=== PATIENT | female | born 1995 ===

== ENCOUNTER 2018-10-19 21:48 | Inpatient (IN) | payer MEDICAID ==
[2018-10-20] MEDS ORDERED: Carboprost Tromethamine 250 MCG/1 ML Amp IM PRN (02:05)
[2018-10-20] MEDS ORDERED: Sodium Chloride 0.9% 10 ML SDV IV PRN (02:05)
[2018-10-20] MEDS ORDERED: Lidocaine 1% 50 ML MDV INJECT PRN (02:05)
[2018-10-20] MEDS ORDERED: Nalbuphine 10 MG/1 ML Vial IVPUSH PRN (02:05)
[2018-10-20] MEDS ORDERED: Tranexamic Acid 1,000 MG in Sodium Chloride 0.9% 100 ML IV PRN (02:05)
[2018-10-20] MEDS ORDERED: Sodium Chloride 0.9% 2.5 ML Syringe FLUSH PRN (02:05)
[2018-10-20] MEDS ORDERED: Sodium Chloride 0.9% 10 ML Syringe FLUSH PRN (02:05)
[2018-10-20] MEDS ORDERED: Misoprostol 200 MCG Tab PO PRN (02:05)
[2018-10-20] MEDS ORDERED: Methylergonovine 0.2 MG/1 ML Amp IM PRN (02:05)
[2018-10-20] MEDS ORDERED: Ondansetron 4 MG/2 ML SDV IV PRN (02:05)
[2018-10-20] MEDS ORDERED: Water For Irrigation,Sterile 1,000 ML Container IRR PRN (02:05)
[2018-10-20] MEDS ORDERED: Oxytocin/0.9 % Sodium Chloride 30 UNIT/500 ML BAG IV SCH (02:15)
[2018-10-20] MEDS ORDERED: Lactated Ringers 1,000 ML IV SCH (02:15)
[2018-10-20] MEDS: Butorphanol 1 MG/ML SDV IVPUSH PRN ×2 (02:46→04:20)
[2018-10-20] MEDS ORDERED: Acetaminophen 500 MG Tab PO PRN ×2 (05:49)
[2018-10-20] MEDS ORDERED: Ibuprofen 400 MG Tab PO PRN (05:49)
[2018-10-20] MEDS ORDERED: Witch Hazel Medicated Pads 40/Jar TOP PRN (05:49)
[2018-10-20] MEDS ORDERED: Benzocaine/Menthol 20%-0.5% Spray 78 GM Cannister TOP PRN (05:49)
[2018-10-20] MEDS ORDERED: Bisacodyl 10 MG Supp RECTAL PRN (05:49)
[2018-10-20] MEDS ORDERED: Lanolin 100% Cream 7 GM Tube TOP PRN (05:49)
[2018-10-20] MEDS ORDERED: oxyCODONE 5 MG Tab PO PRN (05:49)
[2018-10-20] MEDS ORDERED: Docusate Sodium 100 MG Cap PO PRN (05:49)
--- NOTE | 2018-10-20 05:53 | PCM.DEL ---
L & D Note - General Info Date of Service: 10/20/18 Mother's Due Date: 10/25/18 - Delivery Note Labor: Spontaneous Delivery Outcome: Livebirth Infant Delivery Method: Spontaneous Vaginal Delivery-Single Presentation: Vertex Nuchal Cord: None Anesthetic: Lidocaine (Xylocaine) 1% Plain Local Anesthetic Volume: 5cc Amniotic Fluid Description: Clear Episiotomy Type: None Laceration: 2nd Degree Suture type: Other (monocyrl) Suture size: 2-0 Placenta: Intact Cord: 3 Vessels Estimated Blood Loss: 350 Resuscitation Needed: No Score 1 min: 8 Score 5 min: 9 Delivery Comments (Free Text/Narrative):: Live female delivered at 450am 8/9 wt 3280g - General Info Date of Service: 10/20/18 - Patient Data Vitals - Most Recent: t Weight - Most Recent: 56.699 kg Lab Results Last 24 Hours: Laboratory Results - last 24 hr 10/20/18 10/20/18 Range/Units 02:20 02:20 WBC 13.70 H (4.0-11.0) K/uL RBC 3.50 L (4.30-5.90) M/uL Hgb 9.7 L (12.0-16.0) g/dL Hct 29.6 L (36.0-46.0) % MCV 84.6 (80.0-98.0) fL MCH 27.7 (27.0-32.0) pg MCHC 32.8 (31.0-37.0) g/dL RDW Std Deviation 43.1 (28.0-62.0) fl RDW Coeff of Archie 15 (11.0-15.0) % Plt Count 300 (150-400) K/uL MPV 12.20 H (7.40-12.00) fL Blood Type O POSITIVE Antibody Screen NEGATIVE Med Orders - Current: Current Medications Acetaminophen (Tylenol Extra Strength) 500 mg PO Q4H PRN PRN Reason: Pain Acetaminophen (Tylenol Extra Strength) 1,000 mg PO Q4H PRN PRN Reason: Pain Benzocaine/Menthol (Dermoplast Pain Relief 20%-0.5% [place]) 78 gm TOP ASDIRECTED PRN PRN Reason: Perineal Comfort Measure Bisacodyl (Dulcolax) 10 mg RECTAL ONETIME PRN PRN Reason: Constipation Carboprost Tromethamine (Hemabate Ds) 250 mcg IM ASDIRECTED PRN PRN Reason: Post Hemorrhage Docusate Sodium (Colace) 100 mg PO BID PRN PRN Reason: Constipation Emollient Ointment (Lansinoh Hpa) 0 gm TOP ASDIRECTED PRN PRN Reason: Sore Nipples Lactated Ringer's (Ringers, Lactated) 1,000 mls @ 150 mls/hr IV ASDIRECTED RYLEE Oxytocin/Sodium Chloride (Oxytocin 30 Unit/500 Ml-Ns) 30 unit in 500 mls @ 555 mls/hr IV TITRATE RYLEE Last Admin: 10/20/18 04:52 Dose: 555 mls/hr Tranexamic Acid 1,000 mg/ (Sodium Chloride) 110 mls @ 660 mls/hr IV ONETIME PRN PRN Reason: Bleeding Ibuprofen (Motrin) 400 mg PO Q4H PRN PRN Reason: Pain Ibuprofen (Motrin) 800 mg PO Q6H PRN PRN Reason: Pain Lidocaine HCl (Xylocaine 1%) 50 ml INJECT ONETIME PRN PRN Reason: Laceration repair Last Admin: 10/20/18 04:50 Dose: 50 ml Measles/Mumps/Rubella Vaccine Live (M-M-R Ii Vaccine) 0.5 ml SUBCUT .ONCE ONE Stop: 10/21/18 05:50 Methylergonovine Maleate (Methergine) 0.2 mg IM ASDIRECTED PRN PRN Reason: Post Hemorrhage Misoprostol (Cytotec) 200 mcg PO ONETIME PRN PRN Reason: Post Hemorrhage Ondansetron HCl (Zofran) 4 mg IV Q4H PRN PRN Reason: Nausea/Vomiting Oxycodone HCl (Oxycodone) 5 mg PO Q2H PRN PRN Reason: Pain Sodium Chloride (Saline Flush) 10 ml FLUSH ASDIRECTED PRN PRN Reason: Keep Vein Open Sodium Chloride (Saline Flush) 2.5 ml FLUSH ASDIRECTED PRN PRN Reason: Keep Vein Open Sodium Chloride (Normal Saline) 10 ml IV ASDIRECTED PRN PRN Reason: IV Use Sterile Water (Sterile Water For Irrigation) 1,000 ml IRR ASDIRECTED PRN PRN Reason: delivery Last Admin: 10/20/18 04:50 Dose: 1,000 ml [place] Tika (Tucks) 1 pad TOP ASDIRECTED PRN PRN Reason: comfort care Discontinued Medications Butorphanol Tartrate (Stadol) 1 mg IVPUSH Q1H PRN PRN Reason: Pain Last Admin: 10/20/18 04:20 Dose: 1 mg Nalbuphine HCl (Nubain) 10 mg IVPUSH Q1H PRN PRN Reason: Pain (severe 7-10) - Problem List & Annotations (1) Vaginal delivery SNOMED Code(s): 786447281 Code(s): O80 - ENCOUNTER FOR FULL-TERM UNCOMPLICATED DELIVERY Status: Acute Current Visit: Yes - Problem List Review Problem List Initiated/Reviewed/Updated: Yes - My Orders Last 24 Hours: My Active Orders 10/20/18 02:05 Patient Status [ADT] Routine Heart Tones [RC] CONTINUOUS Non Stress Test [RC] PER UNIT ROUTINE May Shower [RC] ASDIRECTED Notify Provider [RC] PRN Up ad Nidia [RC] ASDIRECTED Vaginal Exam [RC] PRN Vital Signs [RC] PER UNIT ROUTINE Carboprost Tromethamine [Hemabate DS] 250 mcg IM ASDIRECTED PRN Lidocaine 1% [Xylocaine 1%] 50 ml INJECT ONETIME PRN Methylergonovine [Methergine] 0.2 mg IM ASDIRECTED PRN Ondansetron [Zofran] 4 mg IV Q4H PRN Sodium Chloride 0.9% [Normal Saline] 10 ml IV ASDIRECTED PRN Sodium Chloride 0.9% [Saline Flush] 10 ml FLUSH ASDIRECTED PRN Sodium Chloride 0.9% [Saline Flush] 2.5 ml FLUSH ASDIRECTED PRN Tranexamic Acid [Cyklokapron] 1,000 mg Sodium Chloride 0.9% [Normal Saline] 100 ml IV ONETIME Water For Irrigation,Sterile [Sterile Water for Irrigation] 1,000 ml IRR ASDIRECTED PRN miSOPROStol [Cytotec] 200 mcg PO ONETIME PRN Peripheral IV Insertion Adult [OM.PC] Routine 10/20/18 02:15 Lactated Ringers [Ringers, Lactated] 1,000 ml IV ASDIRECTED Oxytocin/0.9 % Sodium Chloride [Oxytocin 30 Unit/500 ML-NS] 30 unit in 500 ml IV TITRATE 10/20/18 05:49 May Shower [RC] ASDIRECTED Up ad Nidia [RC] ASDIRECTED Vital Signs [RC] PER UNIT ROUTINE BLOOD GAS ARTERIAL UMBILICAL [BG] Urgent BLOOD GAS VENOUS UMBILICAL [BG] Urgent Acetaminophen [Tylenol Extra Strength] 1,000 mg PO Q4H PRN Acetaminophen [Tylenol Extra Strength] 500 mg PO Q4H PRN Benzocaine/Menthol [Dermoplast Pain Relief 20%-0.5% [place]] 78 gm TOP ASDIRECTED PRN Bisacodyl [Dulcolax] 10 mg RECTAL ONETIME PRN Docusate Sodium [Colace] 100 mg PO BID PRN Ibuprofen [Motrin] 400 mg PO Q4H PRN Ibuprofen [Motrin] 800 mg PO Q6H PRN Lanolin [Lansinoh HPA] See Dose Instructions TOP ASDIRECTED PRN Witch Tika [Tucks] 1 pad TOP ASDIRECTED PRN oxyCODONE 5 mg PO Q2H PRN Assess Lochia [WOMSER] Per Unit Routine Assess Uterine Involution [WOMSER] Per Unit Routine Peripheral IV Discontinue [OM.PC] Routine 10/21/18 05:11 HEMOGLOBIN/HEMATOCRIT,HH [HEME] Timed 10/21/18 05:49 Measles, Mumps & Rubella [M-M-R II Vaccine] 0.5 ml SUBCUT .ONCE ONE
--- NOTE | 2018-10-20 07:43 | OR ---
SURGEON: VANITA ROOT DATE OF PROCEDURE: 10/20/2018 PREOPERATIVE DIAGNOSIS: 22-year-old, G1, P0, at 39 weeks and 2 days, admitted in early labor. POSTOPERATIVE DIAGNOSIS: 22-year-old, G1, P0, at 39 weeks and 2 days, admitted in early labor. PROCEDURE PERFORMED: Normal spontaneous vaginal delivery and repair of second-degree vaginal laceration. ANESTHESIA: Local anesthesia for repair of second-degree laceration ESTIMATED BLOOD LOSS: 350 mL. FINDINGS: Live female delivered at 4:50 a.m. scores 8 and 9, weight is 3280g BRIEF HISTORY: She is a 22-year-old G1, P0 at 39 weeks and 2 days, who came in complaining of contraction. The patient made change from 1-3 cm, was then admitted after which she ruptured spontaneously. The patient made change on to being fully dilated and she was encouraged to push. DESCRIPTION OF PROCEDURE: With good pushing effort, she delivered the head subsequently by the anterior and posterior shoulder. IV Pitocin was started. The body of the infant was delivered. Infant was placed on maternal abdomen. Delayed cord clamping was observed. The cord was clamped and cut, the placenta was delivered via controlled cord traction then the perineum was inspected. A second-degree laceration was noted which was repaired in layer with 2-0 Monocryl. Hemostasis was noted after the repair. All instrument and pad counts were correct x2. The patient tolerated the procedure well and was left the Labor and Delivery room in stable condition. SHERI ADRIAN /[id number] MTDBlake
[2018-10-20] MEDS: Ibuprofen 800 MG Tab PO PRN (20:05)
[2018-10-20] MEDS: Aluminum Hydroxide/Magnesium Hydroxide/Simethicone Susp 30 ML Cup PO PRN (22:38)
[2018-10-21] MEDS ORDERED: Measles, Mumps & Rubella Vaccine 0.5 ML SDV SUBCUT ONE (05:49)
--- NOTE | 2018-10-21 08:51 | PCM.PNPP ---
- General Info Date of Service: 10/21/18 Subjective Update: 22 yo P1 s/p PPD1 Functional Status: Reports: Pain Controlled, Tolerating Diet, Ambulating, Urinating - Review of Systems General: Reports: No Symptoms HEENT: Reports: No Symptoms Pulmonary: Reports: No Symptoms Cardiovascular: Reports: No Symptoms Gastrointestinal: Reports: No Symptoms Genitourinary: Reports: No Symptoms Musculoskeletal: Reports: No Symptoms Skin: Reports: No Symptoms Neurological: Reports: No Symptoms Psychiatric: Reports: No Symptoms - General Info Date of Service: 10/21/18 - Patient Data Vital Signs - Most Recent: Last Vital Signs Temp 36.6 C 10/21/18 04:40 Pulse 84 10/21/18 04:40 Resp 16 10/21/18 04:40 BP 104/59 L 10/21/18 04:40 Pulse Ox 97 10/21/18 04:40 Weight - Most Recent: 56.699 kg Lab Results - Last 24 Hours: Laboratory Results - last 24 hr 10/21/18 Range/Units 06:15 Hgb 9.4 L (12.0-16.0) g/dL Hct 29.9 L (36.0-46.0) % Med Orders - Current: Current Medications Acetaminophen (Tylenol Extra Strength) 500 mg PO Q4H PRN PRN Reason: Pain Acetaminophen (Tylenol Extra Strength) 1,000 mg PO Q4H PRN PRN Reason: Pain Last Admin: 10/21/18 00:12 Dose: 1,000 mg Al Hydroxide/Mg Hydroxide (Mag-Al Plus) 30 ml PO Q4H PRN PRN Reason: Cough Last Admin: 10/20/18 22:38 Dose: 30 ml Benzocaine/Menthol (Dermoplast Pain Relief 20%-0.5% [place]) 78 gm TOP ASDIRECTED PRN PRN Reason: Perineal Comfort Measure Last Admin: 10/20/18 20:05 Dose: 1 can Bisacodyl (Dulcolax) 10 mg RECTAL ONETIME PRN PRN Reason: Constipation Carboprost Tromethamine (Hemabate Ds) 250 mcg IM ASDIRECTED PRN PRN Reason: Post Hemorrhage Docusate Sodium (Colace) 100 mg PO BID PRN PRN Reason: Constipation Emollient Ointment (Lansinoh Hpa) 0 gm TOP ASDIRECTED PRN PRN Reason: Sore Nipples Last Admin: 10/20/18 16:48 Dose: 7 gm Lactated Ringer's (Ringers, Lactated) 1,000 mls @ 150 mls/hr IV ASDIRECTED [facility] Oxytocin/Sodium Chloride (Oxytocin 30 Unit/500 Ml-Ns) 30 unit in 500 mls @ 555 mls/hr IV TITRATE RYLEE Last Admin: 10/20/18 04:52 Dose: 555 mls/hr Tranexamic Acid 1,000 mg/ (Sodium Chloride) 110 mls @ 660 mls/hr IV ONETIME PRN PRN Reason: Bleeding Ibuprofen (Motrin) 400 mg PO Q4H PRN PRN Reason: Pain Ibuprofen (Motrin) 800 mg PO Q6H PRN PRN Reason: Pain Last Admin: 10/20/18 20:05 Dose: 800 mg Lidocaine HCl (Xylocaine 1%) 50 ml INJECT ONETIME PRN PRN Reason: Laceration repair Last Admin: 10/20/18 04:50 Dose: 50 ml Methylergonovine Maleate (Methergine) 0.2 mg IM ASDIRECTED PRN PRN Reason: Post Hemorrhage Misoprostol (Cytotec) 200 mcg PO ONETIME PRN PRN Reason: Post Hemorrhage Ondansetron HCl (Zofran) 4 mg IV Q4H PRN PRN Reason: Nausea/Vomiting Oxycodone HCl (Oxycodone) 5 mg PO Q2H PRN PRN Reason: Pain Sodium Chloride (Saline Flush) 10 ml FLUSH ASDIRECTED PRN PRN Reason: Keep Vein Open Sodium Chloride (Saline Flush) 2.5 ml FLUSH ASDIRECTED PRN PRN Reason: Keep Vein Open Sodium Chloride (Normal Saline) 10 ml IV ASDIRECTED PRN PRN Reason: IV Use Sterile Water (Sterile Water For Irrigation) 1,000 ml IRR ASDIRECTED PRN PRN Reason: delivery Last Admin: 10/20/18 04:50 Dose: 1,000 ml Witch Tika (Tucks) 1 pad TOP ASDIRECTED PRN PRN Reason: comfort care Last Admin: 10/20/18 20:04 Dose: 1 tub Discontinued Medications Butorphanol Tartrate (Stadol) 1 mg IVPUSH Q1H PRN PRN Reason: Pain Last Admin: 10/20/18 04:20 Dose: 1 mg Measles/Mumps/Rubella Vaccine Live (M-M-R Ii Vaccine) 0.5 ml SUBCUT .ONCE ONE Stop: 10/21/18 05:50 Nalbuphine HCl (Nubain) 10 mg IVPUSH Q1H PRN PRN Reason: Pain (severe 7-10) - Interaction Support Person: Mother, Sister - Recovery Exam Fundal Tone: Firm Fundal Level: 1 Fingerbreadths Below Umbilicus Fundal Placement: Midline Lochia Amount: Scant Lochia Color: Rubra/Red Perineum Description: Intact, Minimal Bruising/Swelling Episiotomy/Laceration: Approximated Bladder Status: Voiding - Exam General: Alert, Oriented HEENT: Pupils Equal Neck: Supple Lungs: Clear to Auscultation Cardiovascular: Regular Rate, Regular Rhythm GI/Abdominal Exam: Normal Bowel Sounds Extremities: Normal Inspection Neurological: No New Focal Deficit - Problem List & Annotations (1) Vaginal delivery SNOMED Code(s): 788962252 Code(s): O80 - ENCOUNTER FOR FULL-TERM UNCOMPLICATED DELIVERY Status: Acute Current Visit: Yes - Problem List Review Problem List Initiated/Reviewed/Updated: Yes - Assessment Assessment:: 22 yo P1 s/p PPD 1 , Normal lochia , , ambulating - Plan Plan:: Discharge home today
[2018-10-21] MEDS: Ibuprofen 800 MG Tab PO PRN (14:08)
[2018-10-21] MEDS: Aluminum Hydroxide/Magnesium Hydroxide/Simethicone Susp 30 ML Cup PO PRN (15:15)
== END 2018-10-21 16:10 | disposition home or self-care (01) | DRG 807 ==
LOC: MW.OBCHECK 21:48 → MW.OB 21:49 → MW.OBCHECK 10-20 02:05 → MW.OB 10-20 02:05 → OBSVTOIN 10-20 04:50 → MW.OB 10-20 14:19
PROVIDERS: ADMIT Obstetrics & Gynecology; ATTEND Obstetrics & Gynecology
PROC: 10E0XZZ Delivery of Products of Conception, External Approach (ICD-10-PCS; principal; 2018-10-20)
PROC: 0KQM0ZZ Repair Perineum Muscle, Open Approach (ICD-10-PCS; 2018-10-20)
PROC: 4A1HXCZ Monitoring of Products of Conception, Cardiac Rate, External Approach (ICD-10-PCS; 2018-10-20)
DX: O70.1 Second degree perineal laceration during delivery (principal); Z37.0 Single live birth; Z3A.39 39 weeks gestation of pregnancy
CPT/HCPCS: 36415; 59025; 59409; 82803; 85014; 85018; 85027; 86850; 86900; 86901; 90707; A9270-GY; J0595; J2001; J2590

== ENCOUNTER 2023-03-30 14:12 | Emergency (ER) | payer OTHER ==
[2023-03-30] MEDS ORDERED: diphenhydrAMINE 50 MG/ML SDV IVPUSH ONE (14:55)
[2023-03-30] MEDS ORDERED: Metoclopramide 10 MG/2 ML SDV IVPUSH ONE (14:55)
[2023-03-30] MEDS ORDERED: Sodium Chloride 0.9% 1,000 ML IV ONE (14:55)
[2023-03-30 15:20] LABS: BASOPHILS ABSOLUTE AUTO 0.03 K/uL (0.00-0.20); BASOPHILS PERCENT AUTO 0.6 % (0.0-1.0); EOSINOPHILS ABSOLUTE AUTO 0.03 K/uL (0.00-0.45); EOSINOPHILS PERCENT AUTO 0.6 % (0.0-6.0); HEMATOCRIT 40.7 % (37.0-47.0); HEMOGLOBIN 14.1 g/dL (12.0-16.0); LYMPHOCYTES ABSOLUTE AUTO 1.76 K/uL (1.00-4.80); LYMPHOCYTES PERCENT AUTO 33.1 % (24.0-44.0); MEAN CORPUSCULAR HEMOGLOBIN 30.9 pg (28.0-32.0); MEAN CORPUSCULAR HGB CONC 34.6 g/dL (32.0-36.0); MEAN CORPUSCULAR VOLUME 89.1 fL (83.0-99.0); MONOCYTES ABSOLUTE AUTO 0.35 K/uL (0.00-0.80); MONOCYTES PERCENT AUTO 6.6 % (0.0-8.0); NEUTROPHILS ABSOLUTE AUTO 3.15 K/uL (1.80-7.70); NEUTROPHILS PERCENT AUTO 59.1 % (41.0-71.0); PLATELET COUNT,PLT 383 K/uL (150-400); RED BLOOD CELL COUNT 4.57 M/uL (4.10-5.30); WHITE BLOOD CELL COUNT,WBC 5.32 K/uL (3.9-11.3)
[2023-03-30 15:48] LABS: ALBUMIN 4.2 g/dL (3.4-5.0); BILIRUBIN TOTAL 0.9 mg/dL (0.2-1.0); CALCIUM 9.7 mg/dL (8.5-10.1); CARBON DIOXIDE,CO2 31.4 mmol/L (21.0-32.0); CREATININE 0.8 mg/dL (0.6-1.0); EST CRCL DRUG DOSING (CG) 73.37 mL/min; POTASSIUM,K 3.7 mmol/L (3.5-5.1); PROTEIN TOTAL,TP 8.6 g/dL (6.4-8.2)
[2023-03-30] MEDS ORDERED: Ketorolac 30 MG/ML SDV IVPUSH ONE (16:39)
== END 2023-03-30 16:55 | disposition home or self-care (01) ==
LOC: MW.ED 14:12
DX: R51.9 Headache, unspecified (principal); Z88.1 Allergy status to other antibiotic agents
CPT/HCPCS: 36415; 70450; 80053; 85025; 96361; 96374; 96375; 99284; J1200; J1885; J2765; J7030